=== PATIENT | female | born 1950 | race Caucasian/White ===

== ENCOUNTER 2017-12-10 18:35 | Inpatient (IN) | payer MEDICARE ==
[~2017-12-10] VITALS: Ht 157.4 cm; Wt 151.1 kg
--- NOTE | ~2017-12-10 | PR ---
[place], [place] PROGRESS NOTE NAME: CHANDRIKA GALLAGHER UNIT #: [id number] ROOM: 515 DOCTOR: TREVOR TILLMAN MD,JEFFREY BIRTHDATE: [birth year] DOS: 12/17/2017 PULMONARY PROGRESS NOTE SUBJECTIVE: The patient was noted comfortable at this time. The cough has been noted decreased for this patient after bronchoscopy yesterday, but not completely resolved. Shortness breath still noted with nmbg-op-lbbaostv activity. Denies symptoms of chest pain. The wheezing has been decreased significantly. Denies symptoms of abdominal pain. Denies symptoms of nausea, vomiting or diarrhea. The patient denies any edema or pain in the lower extremities. General weakness and fatigue persisted. Remaining systems were reviewed, they were noted all negative. OBJECTIVE: VITAL SIGNS: The temperature patient noted as normal. The respiratory rate recorded as 20, heart rate 87, blood pressure 142/88. HEENT: Head was atraumatic. Eyes: No icterus. NECK: Supple. CARDIOVASCULAR: S1, S2 is audible. LUNGS: General reduction in breath sounds, scattered wheezing, no crackles. ABDOMEN: Soft and obese. EXTREMITIES: Without any acute edema. Visible skin no lesions or rashes. MUSCULOSKELETAL: Without any acute deformities. CENTRAL NERVOUS SYSTEM: Cranial nerves 2-12 intact. LABORATORY DATA: Culture of the bronchial washing was showing heavy growth of gram-negative bacilli yesterday. The Gram stain of the bronchial washing noted many white blood cells, many gram-positive cocci in clusters. Previous sputum culture noted with Acinetobacter level of the patient, which are noted sensitive to the fluoroquinolones, ciprofloxacin and ceftazidime. IMPRESSION: 1. Persistent acute pneumonia for the patient, which are noted with Acinetobacter ____ acute and resolving, acute exacerbation of bronchial asthma. 2. Hyperglycemia secondary to corticosteroid. 3. Chronic obesity. PLAN OF TREATMENT: Reduce the Solu-Medrol dose 40 mg b.i.d. dosing. Adjustment in antibiotic according to culture results. Discontinuation of the Zithromax and the Rocephin. Start the patient on other gram-negative coverage since the current antibiotic coverage was noted ineffective to manage her bronchitis. Other supportive therapy and plan of management was also planned for this patient. half-way facility assessment. [place], [place] PROGRESS NOTE NAME: CHANDRIKA GALLAGHER UNIT #: [id number] ROOM: 515 DOCTOR: JEFFREY SNOWDEN MD BIRTHDATE: [birth year] JEFFREY MURRAY MD CM:PNTRANS [id number] JEFFREY TILLMAN MD 12/17/17 1603 interface
--- NOTE | ~2017-12-10 | PR ---
[place], [place] PROGRESS NOTE NAME: CHANDRIKA GALLAGHER UNIT #: [id number] ROOM: 515 DOCTOR: TREVOR TILLMAN MD,JEFFREY BIRTHDATE: [birth year] DOS: 12/18/2017 SUBJECTIVE: The patient was noted comfortable at this time, sitting on the bed. Denies symptoms of chest pain. Denies abdominal pain. Still noted with shortness of breath with general weakness and fatigue. OBJECTIVE: VITAL SIGNS: For the patient which has been recorded shows the temperature was noted as normal. The respiratory rate recorded as 18, heart rate 82, and blood pressure 125/90. The pulse oxygen saturation of the patient was recorded as 95% on room air. HEENT: Examination shows no acute change. NECK: Supple. CARDIOVASCULAR: S1 and S2 audible. LUNGS: Qcxt-wq-kelsimwj decreased breath sounds. No wheezing or crackles. ABDOMEN: Soft and nontender with chronic severe obesity. EXTREMITIES: No new changes. IMPRESSION: The patient who has been noted with current gram-negative bacilli, acute bronchitis with exacerbation of bronchial asthma. The final culture results, bronchial washing not released from the microbiology lab. The patient has been reordered a new assessment for the current organism identification. The patient's sensitivity results might be available tomorrow. At this time, the final culture results has not been released. PLAN OF MANAGEMENT: Continuation of antibiotics and bronchodilator. Await for culture for this patient to make final prescription antibiotic coverage for the gram-negative infection. Other supportive therapy, plan of management, care plan. Additional treatment changes will be recommended based on progression of the illness. JEFFREY MURRAY MD CM:PNTRANS [id number] JEFFREY TILLMAN MD 12/18/171954 interface
--- NOTE | ~2017-12-10 | PR ---
[place], [place] PROGRESS NOTE NAME: [id number] UNIT #: [id number] ROOM: 515 DOCTOR: TREVOR TILLMAN MD,JEFFREY BIRTHDATE: [birth year] DOS: 12/16/2017 SUBJECTIVE: The patient was noted comfortable at this time without any acute distress, resting on her bed. Still noted with a cough, the patient which remains nonproductive intermittently. The heart rate was noted in the normal sinus rhythm at this time, the patient started Xarelto 20 mg daily by the Cardiology Services. She was continued to receive the intravenous antibiotics, corticosteroids, bronchodilator treatment as previously. The patient is n.p.o. past midnight and was planned for having a bronchoscopy to be done today. The remaining systems were reviewed with the patient, they were noted all negative. OBJECTIVE: VITAL SIGNS: For the patient which has been recorded shows the temperature noted as normal. The respiratory rate recorded as 18. Heart rate of 98-91. Blood pressure 132/85. The pulse ox saturation on room air 94% saturation. HEENT: Chronic obesity. NECK: Supple. CARDIOVASCULAR: S1, S2 audible. LUNGS: The patient was noted without any crackles. Moderate decreased breath sounds with expiratory wheezing. ABDOMEN: Noted with chronic moderate severe obesity, nontender. Bowel sounds present. EXTREMITIES: The patient noted without any acute edema, clubbing, cyanosis. Chronic obesity findings. SKIN OF TREATMENT: No lesions or rashes. MUSCULOSKELETAL: Without any acute deformities. JEFFREY MURRAY MD CM:PNTRANS [phone] JEFFREY TILLMAN MD 12/16/17 1700 interface
--- NOTE | ~2017-12-10 | PR ---
[place], [place] PROGRESS NOTE NAME: [id number] UNIT #: [id number] ROOM: 515 DOCTOR: TREVOR TILLMAN MD,JEFFREY BIRTHDATE: [birth year] DOS: 12/13/2017 PULMONARY FOLLOWUP NOTE SUBJECTIVE: She has been coughing with expectoration small amount of sputum. The shortness of breath has been improving and noted better than yesterday. Wheezing was still reported for the patient, which is improving. Denies symptoms of chest pain or hemoptysis. OBJECTIVE: VITAL SIGNS: Normal temperature, respiratory rate 16, heart rate 87, blood pressure 159/90. The pulse oxygen saturation on room air 98% saturation. HEENT: No new change. NECK: Supple. CARDIOVASCULAR: S1, S2 audible. LUNGS: The patient was noted with improvement in the wheezing, niwf-rp-eigqhhlx decreased breath sounds bilaterally. ABDOMEN: Soft, obese. EXTREMITIES: No new changes. LABORATORY DATA: CBC today noted normal. BMP: Glucose 280. Remaining BMP was normal. Blood culture was noted with no bacterial growth. IMPRESSION: 1. The patient with acute exacerbation of bronchial asthma with acute severe bronchitis, responding to treatment very well. 2. Steroid-induced hyperglycemia as well. PLAN OF TREATMENT: No changes in the plan for this patient at this time. Continue current therapy as previously in progress. Usual care. All other supportive plan of therapy and management as well. Additional treatment changes to be done based on the progression of the illness. JEFFREY MURRAY MD CM:PNTRANS [id number] JEFFREY TILLMAN MD 12/13/17 1022 interface
--- NOTE | ~2017-12-10 | PR ---
[place], [place] PROGRESS NOTE NAME: CHANDRIKA GALLAGHER [facility] #: [id number] UNIT #: [id number] ROOM: 515 DOCTOR: TREVOR TILLMAN MD,JEFFREY BIRTHDATE: [birth year] DOS: 12/14/2017 HISTORY OF PRESENT ILLNESS: The patient developed atrial fibrillation with rapid ventricular response in the last 24 hours. She has been started intravenous Cardizem drip, also started on the Lovenox 1 mg/kg body weight. The patient was not reported any symptoms of chest pain. Still noted significant severe cough for this patient with minimal sputum expectoration. Denies symptoms of abdominal pain. Denies symptoms of nausea or vomiting or diarrhea. Wheezing was also still reported at time with shortness of breath occurs mostly with exertion. The patient denies symptoms of edema of the lower extremities for this patient, which is significant; however, mild edema was described. Remaining systems were reviewed with the patient, they were noted all negative. OBJECTIVE: VITAL SIGNS: The patient showed normal temperature, respiratory rate 22, heart rate 146-123, new onset of atrial fibrillation with rapid ventricular response, blood pressure 150/90-136/74. The pulse oxygen saturation for the patient on 2 liter nasal cannula 96% saturation. HEENT: Chronic obesity. NECK: Supple. CARDIOVASCULAR: S1, S2. LUNGS: Moderate decreased breath sounds with expiratory wheezing, no crackles. ABDOMEN: Soft. Chronic severe obesity. Bowel sounds present. EXTREMITIES: Without any rashes. Mild edema in bilateral lower extremities was noted. SKIN: No lesions or rashes. GENITOURINARY: Intact. MUSCULOSKELETAL: Without any acute deformities. LABORATORY DATA: The culture of the sputum preliminary showing normal dipti. The Gram stain for the patient yesterday, moderate white blood cell, few epithelial cells, moderate gram-positive cocci in clusters, few gram-negative bacilli. BMP of 311, glucose of 283, BUN and creatinine was normal. Remaining electrolytes grossly normal. Troponin first set normal. IMPRESSION: 1. The patient was encouraged noted with new onset of atrial fibrillation with rapid ventricular response with ongoing acute exacerbation of bronchial asthma, plateaued symptoms. The patient without any further improvement, severe cough. The patient remains with intermittent wheezing and shortness of breath. 2. History of obstructive sleep apnea disorder as well. 3. History of severe morbid obesity as well. PLAN OF THERAPY: Continue to maximize the cardiac management. The patient was assessed. The patient had a bronchoscopy to be done tomorrow initially, but later on deferred for this patient to another day until the medical management of atrial fibrillation done. In the meantime, continue bronchodilators and oxygen supplementation, other supportive therapy, plan of management and care plan. Usual treatment with additional treatment changes to be done based on the progression of the illness. Supportive care and other treatment to be [place], [place] PROGRESS NOTE NAME: CHANDRIKA GALLAGHER UNIT #: [id number] ROOM: [facility] DOCTOR: TREVOR TILLMAN MD,JEFFREY BIRTHDATE: [birth year] continued. Continue current dose of corticosteroids, bronchodilators, and no changes in antibiotic will be necessary. Monitor culture results of the bronchial washings. JEFFREY MURRAY MD CM:PNTRANS [id number] JEFFREY TILLMAN MD 12/14/17 1326 interface
--- NOTE | ~2017-12-10 | CON ---
[place], [place] REPORT OF CONSULTATION NAME: [facility]AND[facility]KA [facility]ALLAGHER [facility]: [id number] UNIT #: [id number] ROOM: 515 DOCTOR: JEFFREY SNOWDEN MD BIRTHDATE: [birth year] DOS: 12/11/2017 CONSULTATION REQUESTED BY: Hospitalist service. REASON FOR CONSULTATION: Ongoing acute respiratory symptoms with exacerbation of bronchial asthma and possible pneumonia. HISTORY OF PRESENT ILLNESS: The patient is a 67-year-old white female very well known to me. She was seen in my office on 12/08/2017 with progressive increased respiratory symptoms ongoing for about a week or so. The symptoms have been noted progressive worsening. The patient not responding to treatment. She contracted this pulmonary infection from her grandson, they were noted, acute illness or upper respiratory tract infection. The patient was assessed in the office. The patient noted with new, acute exacerbation of bronchial asthma with acute bronchitis. The patient was ordered doxycycline 100 mg p.o. b.i.d., tapering prednisone and intramuscular dexamethasone administered in the office. The patient was taking the medication including started using short acting bronchodilator, noted progressive worsening of the respiratory symptom without any response to current treatment. She was advised to come to the Emergency for further assessment and hospitalization. She was admitted to the hospital on 12/10/2017. The patient still noted the cough, which has been noted without any sputum expectoration, chest congestion was noted. She stated some improvement in the symptoms in the last 24 hours. She denies symptoms of hemoptysis. Denies any symptoms of chest trauma. The patient noted the pain in the lower portion of the chest, excess, related to the cough. Shortness breath was occurring with exertion. The patient noted with partial reduction in the last 24 hours since hospitalization. REVIEW OF SYSTEMS: CONSTITUTIONAL: Still noted significant fatigue and tiredness, but not reported any symptoms of fever or chills. EYES: Denies any burning, redness, or tenderness. EARS, NOSE, THROAT: Denies sore throat, hoarseness, otalgia, postnasal drainage, or epistaxis. CARDIOVASCULAR: Denies anginal pain, edema, or pain of the lower extremities. GASTROINTESTINAL: Dysphagia, nausea, vomiting, diarrhea, abdominal pain, hematemesis, melena, or hematochezia. History of chronic severe morbid obesity without any abnormal weight loss. GENITOURINARY: Denies dysuria, suprapubic pain, or hematuria. SKIN: No lesions or rashes. MUSCULOSKELETAL: Without any acute deformities or redness reported. CENTRAL NERVOUS SYSTEM: No dizziness, headache, diplopia, syncopal episodes or tingling sensation. Remaining systems were reviewed. They were noted all negative. PAST MEDICAL HISTORY: 1. History of severe morbid obesity. 2. Osteoarthritis. 3. Obstructive sleep apnea disorder treated with the CPAP of 13 cm of water. [place], [place] REPORT OF CONSULTATION NAME: CHANDRIKA GALLAGHER UNIT #: [id number] ROOM: [facility] DOCTOR: TREVOR TILLMAN MD,JEFFREY BIRTHDATE: [birth year] 4. History of hypothyroidism. SOCIAL HISTORY: The patient is currently , has 2 children, lives at home. Nonsmoker lifetime. Denies history of alcohol use or any illicit drug use. PAST SURGICAL HISTORY: 1. T and A. 2. Umbilical hernia repair. 3. Arthroscopy of the knee. FAMILY HISTORY: The patient's father at age 54 with complication related to brain tumor. Mother with complication related to the COPD. MEDICATIONS: Current administered medications at this hospital, was noted with use of levothyroxine, magnesium oxide, multivitamin, calcium carbonate, fish oil, liothyronine, Mucinex, Solu-Medrol 60 mg b.i.d., levothyroxine, Zyrtec, Zithromax, Rocephin, and other p.r.n. medications. DRUG ALLERGIES: No known drug allergies. PHYSICAL EXAMINATION: GENERAL: A 67-year-old female, currently sitting on the bed without any acute distress this morning at assessment. Height of 5 feet 2 inches, weight of 331 pounds, BMI 60. VITAL SIGNS: Normal temperature, respiratory rate of 20-24, heart rate 81-84, blood pressure 152/61-151/58. The intake is 4200 mL, output was not recorded. Pulse ox and saturation on room air 97% saturation. HEENT: Head was atraumatic. Eye nonicterus. NECK: Supple. Chronic obesity. CARDIOVASCULAR: S1, S2 is audible. LUNGS: The patient was noted with moderate decreased breath sounds with reduction in the wheezing as compared with my previous examination, 3 days ago. There were no crackles. ABDOMEN: Noted chronic severe obesity. Bowel sounds present, nontender. EXTREMITIES: The patient noted chronic obesity for this patient. The finding without any significant edema, clubbing or cyanosis. CENTRAL NERVOUS SYSTEM: Cranial nerves 2-12 intact. No focal deficit. MUSCULOSKELETAL: Without acute deformity. SKIN: No lesions or rashes of visible areas. LABORATORY DATA: Influenza A and B, nasal washing antigen noted negative. The BUN was noted 25, creatinine was normal yesterday, glucose 245. The lactic acid is 3.1. The troponin 2 sets are normal. Arterial blood gas yesterday pH of 7.39, pCO2 of 32, pO2 87 on room air at rest. The CMP this morning, glucose 269, BUN and creatinine was normal. CBC of this morning essentially remains normal. Chest x-ray, 2-view, which was done during this current hospitalization was reviewed, does not show an acute pulmonary infiltration. IMPRESSION: [place], [place] REPORT OF CONSULTATION NAME: CHANDRIKA AGLLAGHER UNIT #: [id number] ROOM: [facility] DOCTOR: JEFFREY SNOWDEN MD BIRTHDATE: [birth year] 1. The patient's ongoing severe acute bronchitis, whether viral or bacterial at this time is not very clear. 2. Acute exacerbation of bronchial asthma. 3. Hyperglycemia secondary to corticosteroid use. The patient has been noted symptomatic improvement yesterday as well. 4. History of hypothyroidism. PLAN OF TREATMENT: Continue current antibiotics combination, bronchodilators, corticosteroids and medical management of hyperglycemia. Respiratory viral panel will be obtained, rule out other viral etiology for the current infection. Supportive therapy, other plan of management and care plan. Addition treatment changes to be made based on the progression of the illness. Thanks for allowing me to participate in the care of this patient. JEFFREY MURRAY MD CM:CONSTR:REPORT OF CONSULTATION 1610 12/12/17 0053 interface
--- NOTE | ~2017-12-10 | PROC NOTE ---
[place], [place] PROCEDURE NOTE NAME: CHANDRIKA GALLAGHER UNIT #: [id number] ROOM: 515 DOCTOR: BETY VALENTINE BIRTHDATE: [birth year] DOS: 12/16/2017 MODIFIED BARIUM SWALLOW LOCATION: [facility], room 515, bed 2. ORDERING PHYSICIAN: Ayla Izquierdo DO RADIOLOGIST: Dr. Arnold. BACKGROUND INFORMATION: The patient is a 67-year-old female who was seen for modified barium swallow. This test was ordered due to difficulty swallowing. Medical history for this patient is significant for severe sepsis, pneumonitis, GERD, thyroid disease, and COPD. The patient reported that she has been experiencing a feeling of globus with solids and that it has worsened since her recent hospitalization. She reported concern that this may be occurring due to her thyroid growth. She stated that she follows with a physician due to this and it was recently checked. She reported that it has remained stable. The patient underwent a bronchoscopy this morning. She reported relief in her respiratory symptoms since this procedure was completed. The patient was not requiring oxygen at the time of today's study. Oral peripheral examination revealed presence of natural teeth which were in good condition. Oral skills were within normal limits in terms of strength, range of motion and coordination. The patient had previously received a regular diet and thin liquids. METHODS AND MATERIALS USED FOR THE EXAM: The patient was positioned in the lateral plane and examination was viewed under fluoroscopy. The patient was presented with a variety of consistencies to assess swallowing skills including applesauce mixed with barium presented in half teaspoon amounts, barium-coated cookie and sandwich taken in bite size pieces and thin liquid barium taken by cup in small and large sip size amounts. ORAL PHASE: Unremarkable. PHARYNGEAL PHASE: The patient elicited a timely swallow with all consistencies given. She exhibited no difficulty with puree or solid consistencies as laryngeal elevation and epiglottic function were adequate and no residue remained in the pharynx. When consuming thin liquid consistency, the patient was noted to take a large sip. At this time, transient penetration occurred due to reduced laryngeal elevation and epiglottic function. The patient was cued to take a smaller sip of liquid and upon further presentations no penetration occurred. No aspiration occurred with any consistency during the study. ESOPHAGEAL PHASE: This phase of the swallow was not formally assessed during this exam. IMPRESSIONS AND RECOMMENDATIONS: Based upon assessment results, this 67-year-old patient presents with swallowing skills that were within functional [place], [place] PROCEDURE NOTE NAME: CHANDRIKA GALLAGHER UNIT #: [id number] ROOM: [facility] DOCTOR: BETY VALENTINE BIRTHDATE: [birth year] limits. It is recommended that she receive a regular diet and thin liquid. Recommend use of safe swallow strategies such as small bites and sips, chewing thoroughly, moistening foods and alternating liquids and solids. Short-term therapy is recommended to ensure safe tolerance of diet through education and use of strategies. Results and recommendations of the assessment were shared with the patient and she verbalized understanding. Thank you very much for this referral. Should you have any questions regarding this patient, please contact the speech pathologist at [phone]. BETY VALENTINE CM:PROCNOTE:PROCEDURE NOTE [id number] BETY VALENTINE
--- NOTE | ~2017-12-10 | PR ---
[place], [place] PROGRESS NOTE NAME: CHANDRIKA GALLAGHER UNIT #: [id number] ROOM: 515 DOCTOR: JEFFREY SNOWDEN MD BIRTHDATE: [birth year] DOS: 12/12/2017 PULMONARY PROGRESS NOTE SUBJECTIVE: The patient was noted with worsening of the shortness of breath. This morning was also noted with wheezing and cough, which has been noted moderate and nonproductive. Denies symptoms of chest pain or hemoptysis. Denies edema or pain of the lower extremities. OBJECTIVE: VITAL SIGNS: Showed normal temperature, respiratory rate 18, heart rate 77, blood pressure 141/65. Pulse oxygen saturation on room air is 97% saturation. HEENT: Examination shows chronic obesity. NECK: Supple. CARDIOVASCULAR: S1, S2 audible. LUNGS: Noted with moderate expiratory wheezing today with decreased breath sounds. ABDOMEN: Soft, nontender. EXTREMITIES: Without any edema. LABORATORY DATA: PT/PTT noted normal today. The BMP of the patient noted as glucose elevated to 150, otherwise normal. CBC this morning was normal. Lactic acid has not been redone from yesterday morning. IMPRESSION: 1. The patient has been currently noted with ongoing acute exacerbation of bronchial asthma with acute bronchitis. 2. Hyperglycemia, secondary to corticosteroids. 3. Chronic obesity. PLAN OF TREATMENT: Continuation of bronchodilators and oxygen supplementation. Management of hyperglycemia will be continued. Continue the current dose of corticosteroid, Solu-Medrol 60 mg b.i.d. The reduction to be done based on improvement in symptoms. [place], [place] PROGRESS NOTE NAME: CHANDRIKA GALLAGHER UNIT #: [id number] ROOM: [facility] DOCTOR: JEFFREY SNOWDEN MD BIRTHDATE: [birth year] JEFFREY MURRAY MD CM:PNTRANS [phone] JEFFREY TILLMAN MD 12/13/17 0055 interface
--- NOTE | ~2017-12-10 | PROC NOTE ---
[place], [place] PROCEDURE NOTE NAME: CHANDRIKA GALLAGHER UNIT #: [id number] ROOM: [facility] DOCTOR: TREVOR TILLMAN MD,JEFFREY BIRTHDATE: [birth year] DOS: 12/16/2017 PREOPERATIVE DIAGNOSES: The patient with increased coughing, which remains persistent for the patient and nonproductive with ongoing exacerbation of bronchial asthma as well. POSTOPERATIVE DIAGNOSES: Removal of moderate size mucus plug and endobronchial tree bilaterally, successfully without any difficulty. DESCRIPTION OF PROCEDURE: Informed consent obtained for the patient. The patient brought to the OR and placed in supine position. Conscious sedation administered by the Anesthesia Department. After achieving proper sedation, airway introduced into the mouth. Bronchoscope advanced to the airway into laryngeal area. Epiglottis and vocal cords were seen. Vocal cords moving symmetrically with movements. The bronchoscope advanced to vocal cord and tracheal lumen that shows moderate amount of thick mucus which was suctioned out ____. The patient noted similar appearance of the mucus causing impaction of the endobronchial tree subsegments bilaterally mostly in the lower lungs. Bronchial washing taken for all the bronchus subsegment which was otherwise noted patent. Procedure well tolerated by the patient. Postoperative findings were discussed with the patient's family members. JEFFREY MURRAY MD CM:PROCNOTE:PROCEDURE NOTE 1226 [id number] JEFFREY TILLMAN MD
--- NOTE | ~2017-12-10 | EKG ---
[place], [place] ELECTROCARDIOGRAM REPORT NAME: CHANDRIKA GALLAGHER UNIT #: [id number] ROOM: [facility] DOCTOR: TREVOR TILLMAN MD,JEFFREY BIRTHDATE: [birth year] DOS: 12/10/2017 ELECTROCARDIOGRAM REPORT TIME: 7:26 p.m. Normal sinus rhythm noted with heart rate of 82 beats per minute without any ischemic changes or arrhythmias. JEFFREY MURRAY MD CM:EKGRPT:ELECTROCARDIOGRAM REPORT [id number] JEFFREY TILLMAN MD
--- NOTE | ~2017-12-10 | PR ---
[place], [place] PROGRESS NOTE NAME: CHANDRIKA GALLAGHER [facility] #: [id number] UNIT #: [id number] ROOM: 515 DOCTOR: TREVOR TILLMAN MD,JEFFREY BIRTHDATE: [birth year] DOS: 12/15/2017 SUBJECTIVE: The patient was noted comfortable at this time without any acute distress at this time. She has been still noted the coughing. The tachycardia for the patient, which was noted yesterday with atrial fibrillation seems to be resolved completely. The patient ____ abdominal pain. No symptoms of nausea or vomiting. The shortness of breath has been noted with gradual reduction. She has been continued subcutaneous Lovenox and also receiving the intravenous Cardizem drip. She denies symptoms of hematuria, hemoptysis, or hematochezia. Denies any worsening of the edema of the lower extremity. Mild edema of the lower extremity remains persistent. The remaining systems were reviewed. They were noted all negative. OBJECTIVE: VITAL SIGNS: For the patient shows normal temperature, respiratory rate 20, heart rate 89. Previous noted highest of 146. The blood pressure is 141/70, 137/87. Pulse oxygen saturation on 2 liter nasal cannula 97% saturation. HEENT: Examination shows head was atraumatic. Eyes nonicterus. NECK: Supple. CARDIOVASCULAR: S1, S2 is audible. LUNGS: The patient was noted with moderately decreased breath sounds in the lung with expiratory wheezing. There were no crackles. ABDOMEN: Soft, obese, and nontender. EXTREMITIES: Minimal edema of the ankle areas. VISIBLE SKIN: No lesions or rashes. MUSCULOSKELETAL: Without any acute deformities. CENTRAL NERVOUS SYSTEM: Cranial nerves 2-12 intact. No focal deficit. LABORATORY DATA: Culture of the sputum shows moderate growth of gram-negative bacilli for the patient at this time. CT of the chest that was ordered by the primary care attending was reviewed. The patient does not show any dense pulmonary abnormalities and/or pulmonary infiltration. Small linear atelectasis noted in the right lower lobe. BMP shows glucose of 340, BUN 26, creatinine was normal. CBC for the patient this morning, WBC count 12.6, hemoglobin normal, hematocrit 48. Platelet count was normal. 92% segmented neutrophils. Ultrasound of the lower extremity was noted with a Santos cyst reported in the right lower leg. There was no evidence of deep venous thrombosis. IMPRESSION: 1. The patient with ongoing acute exacerbation of bronchial asthma, acute tracheobronchitis, gram-negative organism ____ sensitivity. 2. Persistent severe nonproductive cough with mucus impaction. 3. Acute onset of atrial fibrillation with rapid ventricular response, which has been improving at the present time. 4. Obstructive sleep apnea disorder and chronic obesity. PLAN OF THERAPY: The patient was scheduled to have the bronchoscopy done tomorrow morning. In the meantime, continue the current plan of treatment. Adjust the antibiotic after the culture results availability. No changes need to be made immediately in the treatment. Supportive therapy, plan of management [place], [place] PROGRESS NOTE NAME: CHANDRIKA GALLAGHER UNIT #: [id number] ROOM: [facility] DOCTOR: TREVOR TILLMAN MD,JEFFREY BIRTHDATE: [birth year] and care plan. Additional treatment changes will be recommended based on progression of illness. JEFFREY MURRAY MD CM:PNTRANS [id number] JEFFREY TILLMAN MD 12/15/17 1307 interface
--- NOTE | ~2017-12-10 | CON ---
[place], [place] REPORT OF CONSULTATION NAME: CHANDRIKA GALLAGHER UNIT #: [id number] ROOM: 515 DOCTOR: AJIT SARABIA MD BIRTHDATE: [birth year] DOS: 12/14/2017 REASON FOR CONSULTATION: Rapid irregular heartbeat. HISTORY OF PRESENT ILLNESS: The patient is a 67-year-old woman who was seen at her bedside today, 12/14/2017, for evaluation of atrial fibrillation. She has a history of asthma and seasonal allergies. Recently, she was visiting with family members who had a lot of birds in the house. She states that after she left, she felt tightness and pain in her chest. Since then, her symptoms of chest tightness, cough and sputum production have gotten worse. She was treated as an outpatient with antibiotics, bronchodilators and steroids without improvement and therefore was hospitalized for more aggressive management. She was hospitalized on 12/10/2017 and was improving until 12/13/2017 when she was noted to have rapid irregular heartbeat. Monitor and EKG showed atrial fibrillation with rapid ventricular response. This was a new rhythm for the patient and we were asked to assist in her management. The patient is aware of her irregular heartbeat, but denies any chest pain. She has never had this before. She denies any history of myocardial infarction or angina. She denies any previous palpitations. The patient does not have a history of diabetes or stroke and does not have any peripheral vascular disease. Her CHADS2-VASc score is 2 indicating a high risk for future embolic events (2.2% per year without anticoagulation). PAST MEDICAL HISTORY: Includes 1. Obstructive lung disease. 2. Anxiety. 3. Gastroesophageal reflux disease. 4. Interstitial lung disease. 5. Obstructive sleep apnea. 6. Multiple problems with degenerative joint disease including back, hips, knees, etc., resulting in chronic pain. 7. Morbid obesity, brought on by steroids and inactivity after a back injury. 8. Status post cholecystectomy, tonsillectomy and tubal ligation. 9. History of thyroid nodule, being treated with thyroid suppression. 10. Newly documented atrial fibrillation, first noted 12/13/2017. 11. History of phlebitis in the 1980s, reportedly brought on by oral contraceptives. MEDICATIONS: Prior to admission included albuterol 2 puffs q. 4 hours p.r.n., calcium 500 mg daily, vitamin D 50,000 units weekly, fexofenadine 60 mg b.i.d., fish oil 1200 mg daily, fluoxetine 10 mg weekly on Mondays, levothyroxine 50 mcg on Mondays, Tuesdays, Wednesdays, and Fridays and 75 mcg daily on Saturdays and Sundays with Liothyronine 5 mcg daily, magnesium oxide 1500 mg daily, multivitamin once a day, CoQ10 200 mg daily. ALLERGIES: The patient lists allergies to LATEX and has FOOD allergies as well. FAMILY HISTORY: Father at age 52 from brain tumor. Her mother from [place], [place] REPORT OF CONSULTATION NAME: CHANDRIKA GALLAGHER UNIT #: [id number] ROOM: [facility] DOCTOR: AJIT SARABIA MD BIRTHDATE: [birth year] complications of obstructive lung disease. REVIEW OF SYSTEMS: The patient denies diplopia or loss of vision. She does have chronic joint pains in her neck, back, hips and knees. She denies focal weakness, but is generally weak. She does have cough and dyspnea. She denies fevers, chills, sweats or recent weight loss. She is morbidly obese from inactivity, steroids, etc. She denies nausea or vomiting. She denies hemoptysis or hematemesis. She denies peripheral edema. She denies change in bowel or bladder habits. She denies bleeding from her stools or urine. She does walk with a cane or a walker. She has no cold or heat intolerance and no polydipsia or polyuria. Remainder of the review of systems is negative except as noted above. SOCIAL HISTORY: The patient is . She has never smoked, but her was a heavy smoker and she was exposed to secondhand smoke for quite some time. She does not consume alcohol. PHYSICAL EXAMINATION: GENERAL: The patient is a pleasant, markedly overweight white female who is awake, alert and oriented. VITAL SIGNS: Pulse is 120 and irregularly irregular, blood pressure is 150/92. She is afebrile. She weighs 151.1 kg and has a body mass index of 61. HEENT: Normocephalic and atraumatic. Extraocular muscles are intact. Sclerae are clear. Pupils are equal, round and react to light. The oral mucosa is moist. Tongue is midline. NECK: Supple. She has no jugular distention. Carotids are full. I heard no bruits. She had no neck or supraclavicular masses and no thyromegaly. LUNGS: Respirations are unlabored. Her chest is clear to auscultation and percussion. She has no presacral edema or chest wall tenderness. CARDIOVASCULAR: Her heart has an irregularly irregular rhythm without murmurs, rubs or gallops. The PMI is not displaced. There is no precordial heave, lift or thrill. ABDOMEN: Obese, but otherwise benign, without masses, organomegaly, bruits, tenderness or rebound. EXTREMITIES: Showed trace edema at the ankles. Pedal pulses are palpable bilaterally. She has no obvious skin rashes. LABORATORY DATA: I reviewed her electrocardiogram, which shows atrial fibrillation with a rapid ventricular response. She has early precordial R-wave progression and nonspecific ST-T changes, which may be related to rate. Hemoglobin is 13.7, white count 8300, platelet count 182,000. Blood gas shows pH of 7.39, pCO2 of 32.5, pO2 of 87.6. Blood chemistry shows sodium of 140, potassium 4.0, BUN 21, creatinine 0.78. Troponin levels are normal x 3. TSH is suppressed at 0.154. IMPRESSIONS: 1. Admitted to the hospital with acute exacerbation of chronic lung disease. 2. Newly documented atrial fibrillation with rapid ventricular response, 12/13/2017. 3. CHADS-VASc score of 2, indicating a high risk for stroke without [place], [place] REPORT OF CONSULTATION NAME: CHANDRIKA GALLAGHER UNIT #: [id number] ROOM: [facility] DOCTOR: AJIT SARABIA MD BIRTHDATE: [birth year] anticoagulation. 4. Morbid obesity. 5. Degenerative joint disease. 6. History of thyroid nodule, on thyroid suppression. 7. Obstructive sleep apnea, on CPAP at home. PLAN: For now, we will evaluate her with an echocardiogram as we continue efforts to slow her heart rate. She will be placed on oral diltiazem and weaned off the intravenous diltiazem as she tolerates. She and I discussed the complications of atrial fibrillation including dyspnea, fatigue, palpitations and especially the increased risk of stroke. She does understand the indications for anticoagulation therapy and has requested that we start her on a direct oral anticoagulant. I have selected rivaroxaban for her and she will begin this today. We will stop her Lovenox in the interim. We will obtain an echocardiogram. Further recommendations depend upon the results of the echo, but at this point, I think rate control and anticoagulation are our first goals. I thank the hospitalist physicians for asking our advice regarding the patient's care. AJIT SARABIA MD CM:CONSTR:REPORT OF CONSULTATION 1614 12/14/17 2154 interface
[2017-12-10 18:42] VITALS: BP 189/94
[2017-12-10 19:27] LABS: BASO % 0.2 % (0.0-1.0); HEMATOCRIT 47.2 % (37.0-47.0); HEMOGLOBIN 15.3 g/dl (12.0-16.0); LYMPH # 1.4 10*3/uL (1.3-4.4); LYMPH % 11.5 % (27.0-41.0); MEAN CELL VOLUME 82.8 fl (81.0-99.0); MEAN CORPUSCULAR HGB 26.8 pg (27.0-31.0); MEAN CORPUSCULAR HGB CONC 32.4 g/dl (33.0-37.0); MEAN PLATELET VOLUME 11.3 fl (9.6-12.3); MONO # 0.4 10*3/uL (0.1-1.0); MONO % 3.2 % (3.0-9.0); NEUT # 10.1 10*3/uL (2.3-7.9); PLATELET COUNT AUTOMATED 232 10*3/uL (130-400); RED CELL DISTRI WIDTH 14.3 % (0-14.5); WHITE BLOOD COUNT 12.1 10*3/uL (4.8-10.8)
[2017-12-10 19:43] LABS: ALBUMIN 3.7 gm/dl (3.1-4.5); ALKALINE PHOSPHATASE 88 U/L (45-117); BUN 25 mg/dl (7-24); CHLORIDE 106 mmol/L (98-107); CREATININE 0.78 mg/dL (0.55-1.02); POTASSIUM 3.9 mmol/L (3.5-5.1); SGOT/AST 23 IU/L (3-35); SGPT/ALT 32 U/L (12-78); SODIUM 140 mmol/L (136-145); TOTAL PROTEIN 7.7 gm/dL (6.4-8.2)
[2017-12-10 19:47] LABS: TROPONIN I < 0.015 ng/ml (<0.045)
[2017-12-10 20:04] LABS: BILIRUBIN NEGATIVE (NEGATIVE); BLOOD TRACE-LYSED (NEGATIVE); CLARITY SL CLOUDY (CLEAR); COLOR YELLOW (YELLOW); GLUCOSE NEGATIVE (NEGATIVE); KETONE NEGATIVE (NEGATIVE); LEUKO ESTERASE NEGATIVE (NEGATIVE); NITRITE NEGATIVE (NEGATIVE); SPECIFIC GRAVITY 1.025 (1.005-1.030); UROBILINOGEN 0.2 E.U./dl (0.2-1.0)
[2017-12-10 20:11] LABS: BACTERIA TRACE; RBC 0-2 rbc/hpf (0-2); WBC 0-2 wbc/hpf (0-5)
[2017-12-10 20:59] VITALS: BP 178/92
[2017-12-10 21:15] VITALS: BP 143/77
[2017-12-10] MEDS ORDERED: VENTOLIN,PR2 MG/5 ML INH (22:37)
[2017-12-10] MEDS ORDERED: PROZAC10 MG PO (22:38)
[2017-12-10] MEDS ORDERED: VITAMIN D50000 UNIT PO (22:39)
[2017-12-10] MEDS ORDERED: SYNTHROID,LEVO75 MCG PO (22:41)
[2017-12-10] MEDS ORDERED: Synthroid,Levo50 MCG PO (22:41)
[2017-12-10] MEDS ORDERED: COQ-10100 MG PO (22:42)
[2017-12-10] MEDS ORDERED: CYTOMEL5 MCG PO (22:42)
[2017-12-10] MEDS ORDERED: OMEGA 3-6-9 11200 MG PO (22:43)
[2017-12-10] MEDS ORDERED: CALCIUM500 M1 PO (22:43)
[2017-12-10] MEDS ORDERED: CENTRUM SILVER1 EAC1 PO (22:44)
[2017-12-10] MEDS ORDERED: ALLEGRA ALLERGY60 M2 PO (22:45)
[2017-12-10] MEDS ORDERED: MAGNESIUM400 M1 PO (22:46)
[2017-12-11] VITALS: BP 153/64
[2017-12-11 00:52] LABS: ABG BASE EXCESS -4.3 mmol/L (-2.0-2.0); ABG HCO3 19.3 mmol/l (22-26); ABG O2 SATURATION 97.1 % (95-97); ARTERIAL BLOOD GAS PCO2 32.5 mmHg (35-45); ARTERIAL BLOOD GAS PH 7.39 (7.35-7.45); ARTERIAL BLOOD GAS PO2 87.6 mmHg (80-90)
[2017-12-11 04:11] LABS: BASO % 0.1 % (0.0-1.0); HEMATOCRIT 44.2 % (37.0-47.0); HEMOGLOBIN 14.2 g/dl (12.0-16.0); LYMPH # 0.8 10*3/uL (1.3-4.4); LYMPH % 9.5 % (27.0-41.0); MEAN CELL VOLUME 82.3 fl (81.0-99.0); MEAN CORPUSCULAR HGB 26.4 pg (27.0-31.0); MEAN CORPUSCULAR HGB CONC 32.1 g/dl (33.0-37.0); MONO # 0.1 10*3/uL (0.1-1.0); MONO % 1.2 % (3.0-9.0); NEUT # 7.6 10*3/uL (2.3-7.9); NEUT % 88.5 % (47.0-73.0); PLATELET COUNT AUTOMATED 181 10*3/uL (130-400); RED BLOOD COUNT 5.37 10*6/uL (4.10-5.10); WHITE BLOOD COUNT 8.6 10*3/uL (4.8-10.8)
[2017-12-11 04:39] LABS: ALBUMIN 3.3 gm/dl (3.1-4.5); BUN 19 mg/dl (7-24); CHLORIDE 105 mmol/L (98-107); CHOLESTEROL 138 mg/dL (<200); HDL CHOLESTEROL 36 mg/dl (40-60); LDL CHOLESTEROL 86 mg/dL (9-159); PHOSPHOROUS 2.6 mg/dL (2.5-4.9); POTASSIUM 3.8 mmol/L (3.5-5.1); SGOT/AST 16 IU/L (3-35); SGPT/ALT 28 U/L (12-78); SODIUM 140 mmol/L (136-145); TOTAL PROTEIN 6.9 gm/dL (6.4-8.2); TRIGLYCERIDES 79 mg/dl (<150); VLDL CHOLESTEROL 16 mg/dL (6-40)
[2017-12-11 04:45] LABS: ALKALINE PHOSPHATASE 76 U/L (45-117); CREATININE 0.72 mg/dL (0.55-1.02); FREE T4 1.06 ng/dl (0.76-1.46); THYROID STIM HORMONE (HS) 0.154 uIU/ml (0.358-4.75)
[2017-12-11 08:00] VITALS: BP 151/58
[2017-12-11 08:34] LABS: VITAMIN D, 25-HYDROXY 66.4 ng/mL (30-100)
[2017-12-11 12:00] VITALS: BP 150/62
[2017-12-11 16:00] VITALS: BP 123/61
[2017-12-11 20:19] VITALS: BP 131/57
[2017-12-12 00:15] VITALS: BP 141/65
[2017-12-12 07:12] LABS: BASO % 0.1 % (0.0-1.0); HEMATOCRIT 42.4 % (37.0-47.0); HEMOGLOBIN 14.2 g/dl (12.0-16.0); LYMPH # 0.8 10*3/uL (1.3-4.4); LYMPH % 7.6 % (27.0-41.0); MEAN CELL VOLUME 82.8 fl (81.0-99.0); MEAN CORPUSCULAR HGB 27.7 pg (27.0-31.0); MEAN CORPUSCULAR HGB CONC 33.5 g/dl (33.0-37.0); MEAN PLATELET VOLUME 11.3 fl (9.6-12.3); MONO # 0.5 10*3/uL (0.1-1.0); MONO % 5.2 % (3.0-9.0); NEUT # 8.5 10*3/uL (2.3-7.9); NEUT % 86.3 % (47.0-73.0); PLATELET COUNT AUTOMATED 189 10*3/uL (130-400); RED BLOOD COUNT 5.12 10*6/uL (4.10-5.10); RED CELL DISTRI WIDTH 14.3 % (0-14.5); WHITE BLOOD COUNT 9.9 10*3/uL (4.8-10.8)
[2017-12-12 07:23] LABS: ACT PARTIAL THROMBO TIME 18.3 SECONDS (20.8-31.5)
[2017-12-12 07:30] LABS: CHLORIDE 107 mmol/L (98-107); POTASSIUM 3.6 mmol/L (3.5-5.1); SODIUM 142 mmol/L (136-145)
[2017-12-12 07:37] LABS: BUN 18 mg/dl (7-24); CREATININE 0.84 mg/dL (0.55-1.02); PHOSPHOROUS 2.7 mg/dL (2.5-4.9)
[2017-12-12 08:00] VITALS: BP 175/82
[2017-12-12 12:00] VITALS: BP 150/71
[2017-12-12 16:00] VITALS: BP 166/84
[2017-12-12 20:00] VITALS: BP 147/78
[2017-12-13] VITALS: BP 145/75
[2017-12-13 06:34] LABS: BASO % 0.1 % (0.0-1.0); HEMATOCRIT 41.5 % (37.0-47.0); HEMOGLOBIN 13.7 g/dl (12.0-16.0); LYMPH # 0.6 10*3/uL (1.3-4.4); LYMPH % 7.6 % (27.0-41.0); MEAN CELL VOLUME 83.2 fl (81.0-99.0); MEAN CORPUSCULAR HGB 27.5 pg (27.0-31.0); MEAN PLATELET VOLUME 11.3 fl (9.6-12.3); MONO # 0.4 10*3/uL (0.1-1.0); MONO % 4.4 % (3.0-9.0); NEUT # 7.1 10*3/uL (2.3-7.9); NEUT % 85.7 % (47.0-73.0); PLATELET COUNT AUTOMATED 182 10*3/uL (130-400); RED BLOOD COUNT 4.99 10*6/uL (4.10-5.10); RED CELL DISTRI WIDTH 14.5 % (0-14.5); WHITE BLOOD COUNT 8.3 10*3/uL (4.8-10.8)
[2017-12-13 07:00] LABS: BUN 21 mg/dl (7-24); CHLORIDE 106 mmol/L (98-107); POTASSIUM 3.8 mmol/L (3.5-5.1); SODIUM 140 mmol/L (136-145)
[2017-12-13 08:00] VITALS: BP 159/90
[2017-12-13 12:00] VITALS: BP 158/88
[2017-12-13 16:00] VITALS: BP 156/86
[2017-12-13 20:00] VITALS: BP 150/90
[2017-12-14] VITALS: BP 140/80
[2017-12-14 06:12] LABS: BUN 21 mg/dl (7-24); CHLORIDE 105 mmol/L (98-107); CREATININE 0.78 mg/dL (0.55-1.02); SODIUM 140 mmol/L (136-145)
[2017-12-14 08:00] VITALS: BP 136/74
[2017-12-14 12:00] VITALS: BP 150/92
[2017-12-14 16:00] VITALS: BP 144/89
[2017-12-14 20:00] VITALS: BP 120/60
[2017-12-15] VITALS: BP 137/87
[2017-12-15 06:51] LABS: HEMATOCRIT 48.6 % (37.0-47.0); MEAN CELL VOLUME 81.8 fl (81.0-99.0); MEAN CORPUSCULAR HGB 26.9 pg (27.0-31.0); MEAN CORPUSCULAR HGB CONC 32.9 g/dl (33.0-37.0); MEAN PLATELET VOLUME 11.5 fl (9.6-12.3); PLATELET COUNT AUTOMATED 245 10*3/uL (130-400); RED BLOOD COUNT 5.94 10*6/uL (4.10-5.10); RED CELL DISTRI WIDTH 14.6 % (0-14.5); WHITE BLOOD COUNT 12.6 10*3/uL (4.8-10.8)
[2017-12-15 06:52] LABS: BUN 26 mg/dl (7-24); CHLORIDE 102 mmol/L (98-107); CREATININE 0.93 mg/dL (0.55-1.02); POTASSIUM 3.6 mmol/L (3.5-5.1); SODIUM 139 mmol/L (136-145)
[2017-12-15 07:17] LABS: PLATELET SUFFICIENCY NORMAL (NORMAL); TOTAL CELLS COUNTED 100 #CELLS
[2017-12-15 08:00] VITALS: BP 141/73
[2017-12-15] MEDS ORDERED: FOSAMAX70 M1 PO (11:20)
[2017-12-15 12:00] VITALS: BP 143/79
[2017-12-15 16:00] VITALS: BP 136/73
[2017-12-15 20:00] VITALS: BP 140/68
[2017-12-16] VITALS (8 sets, daily range): BP systolic 117–153; BP diastolic 75–92
[2017-12-16 01:02] LABS: ADENOVIRUS Negative (Negative); INFLUENZA A Negative (Negative); INFLUENZA B Negative (Negative); METAPNEUMOVIRUS Negative (Negative); PARAINFLUENZA 1 Negative (Negative); PARAINFLUENZA 2 Negative (Negative); PARAINFLUENZA 3 Negative (Negative); RHINOVIRUS Negative (Negative); RSV A Negative (Negative); RSV B Negative (Negative)
[2017-12-16 06:50] LABS: HEMATOCRIT 43.1 % (37.0-47.0); HEMOGLOBIN 14.2 g/dl (12.0-16.0); MEAN CELL VOLUME 82.1 fl (81.0-99.0); MEAN CORPUSCULAR HGB CONC 32.9 g/dl (33.0-37.0); PLATELET COUNT AUTOMATED 226 10*3/uL (130-400); RED BLOOD COUNT 5.25 10*6/uL (4.10-5.10); RED CELL DISTRI WIDTH 14.5 % (0-14.5); WHITE BLOOD COUNT 13.6 10*3/uL (4.8-10.8)
[2017-12-16 07:04] LABS: BUN 29 mg/dl (7-24); CHLORIDE 102 mmol/L (98-107); CREATININE 1.03 mg/dL (0.55-1.02); PHOSPHOROUS 3.1 mg/dL (2.5-4.9); SODIUM 140 mmol/L (136-145)
[2017-12-16 07:26] LABS: PLATELET SUFFICIENCY NORMAL (NORMAL); TOTAL CELLS COUNTED 100 #CELLS
[2017-12-17] VITALS: BP 142/88
[2017-12-17 08:00] VITALS: BP 136/90
[2017-12-17] MEDS ORDERED: CARDIZEM CD240 M1 PO (11:56)
[2017-12-17] MEDS ORDERED: MAGNESIUM OXID400 MG PO (11:56)
[2017-12-17] MEDS ORDERED: PREDNISONE10 MG PO (11:56)
[2017-12-17] MEDS ORDERED: LASIX20 MG PO (11:56)
[2017-12-17] MEDS ORDERED: LORAZEPAM1 MG PO (11:56)
[2017-12-17] MEDS ORDERED: XARE20MG PO (11:56)
[2017-12-17] MEDS ORDERED: POTASSIUM CHLO10 ME5 PO (11:58)
[2017-12-17] MEDS ORDERED: LEVAQUIN750 M1 PO (11:59)
[2017-12-17 12:00] VITALS: BP 141/80
[2017-12-17] MEDS ORDERED: LANOXIN0.125 MG PO (13:37)
[2017-12-17 16:00] VITALS: BP 121/76; BP 138/79
[2017-12-17 16:05] LABS: ACID FAST SPEC PROCESSING Concentration (.)
[2017-12-17 20:00] VITALS: BP 121/67
[2017-12-18] VITALS: BP 148/84
[2017-12-18 08:00] VITALS: BP 125/90
[2017-12-18 12:00] VITALS: BP 149/74
== END 2017-12-18 16:45 | disposition other institution (70) | DRG 871 ==
LOC: ED 18:35 → 5E 20:39 → EDHOLD 20:39 → 5E 20:52
PROVIDERS: Family Medicine; Internal Medicine; Internal Medicine Critical Care Medicine; Internal Medicine Nephrology; Physician Assistant
PROC: BD11YZZ Fluoroscopy of Esophagus using Other Contrast (ICD-10-PCS; principal; 2017-12-16)
PROC: 0BC18ZZ Extirpation of Matter from Trachea, Via Natural or Artificial Opening Endoscopic (ICD-10-PCS; principal; 2017-12-16)
PROC: 0BC68ZZ Extirpation of Matter from Right Lower Lobe Bronchus, Via Natural or Artificial Opening Endoscopic (ICD-10-PCS; 2017-12-16)
PROC: 0BC48ZZ Extirpation of Matter from Right Upper Lobe Bronchus, Via Natural or Artificial Opening Endoscopic (ICD-10-PCS; 2017-12-16)
PROC: 0BC78ZZ Extirpation of Matter from Left Main Bronchus, Via Natural or Artificial Opening Endoscopic (ICD-10-PCS; 2017-12-16)
PROC: 0BC58ZZ Extirpation of Matter from Right Middle Lobe Bronchus, Via Natural or Artificial Opening Endoscopic (ICD-10-PCS; 2017-12-16)
PROC: 0BCB8ZZ Extirpation of Matter from Left Lower Lobe Bronchus, Via Natural or Artificial Opening Endoscopic (ICD-10-PCS; 2017-12-16)
PROC: 0BC88ZZ Extirpation of Matter from Left Upper Lobe Bronchus, Via Natural or Artificial Opening Endoscopic (ICD-10-PCS; 2017-12-16)
PROC: 0BC98ZZ Extirpation of Matter from Lingula Bronchus, Via Natural or Artificial Opening Endoscopic (ICD-10-PCS; 2017-12-16)
PROC: 0BC38ZZ Extirpation of Matter from Right Main Bronchus, Via Natural or Artificial Opening Endoscopic (ICD-10-PCS; 2017-12-16)
PROC: B5181ZA Fluoroscopy of Superior Vena Cava using Low Osmolar Contrast, Guidance (ICD-10-PCS; 2017-12-18)
PROC: 02HV33Z Insertion of Infusion Device into Superior Vena Cava, Percutaneous Approach (ICD-10-PCS; 2017-12-18)
PROC: B548ZZA Ultrasonography of Superior Vena Cava, Guidance (ICD-10-PCS; 2017-12-18)
DX: A41.9 Sepsis, unspecified organism (principal); J18.9 Pneumonia, unspecified organism; N17.9 Acute kidney failure, unspecified; T17.590A Other foreign object in bronchus causing asphyxiation, initial encounter; D68.59 Other primary thrombophilia; I48.0 Paroxysmal atrial fibrillation; E66.01 Morbid (severe) obesity due to excess calories; E83.51 Hypocalcemia; I48.1 Persistent atrial fibrillation; J45.901 Unspecified asthma with (acute) exacerbation; Z68.44 Body mass index [BMI] 60.0-69.9, adult; I16.0 Hypertensive urgency; R65.20 Severe sepsis without septic shock; J20.9 Acute bronchitis, unspecified; F41.8 Other specified anxiety disorders; K21.9 Gastro-esophageal reflux disease without esophagitis; G47.33 Obstructive sleep apnea (adult) (pediatric); R73.9 Hyperglycemia, unspecified; E03.9 Hypothyroidism, unspecified; M16.0 Bilateral primary osteoarthritis of hip; M17.0 Bilateral primary osteoarthritis of knee; R31.9 Hematuria, unspecified; T38.0X5A Adverse effect of glucocorticoids and synthetic analogues, initial encounter; X58.XXXA Exposure to other specified factors, initial encounter; Y92.89 Other specified places as the place of occurrence of the external cause; Y93.89 Activity, other specified; Y99.8 Other external cause status; Z90.49 Acquired absence of other specified parts of digestive tract; Z98.51 Tubal ligation status; Z80.8 Family history of malignant neoplasm of other organs or systems; Z83.6 Family history of other diseases of the respiratory system; Z79.899 Other long term (current) drug therapy; Z98.42 Cataract extraction status, left eye; Z98.41 Cataract extraction status, right eye; Z83.3 Family history of diabetes mellitus; Z82.49 Family history of ischemic heart disease and other diseases of the circulatory system

== ENCOUNTER → 2022-09-20 | Outpatient (CLI) | payer MEDICARE, OTHER ==
[~2022-09-20] MED LIST: ALLEGRA ALLERGY60 M2 PO; CALCIUM500 M1 PO; CARDIZEM CD240 M1 PO; CENTRUM SILVER1 EAC1 PO; COQ-10100 MG PO; CYTOMEL5 MCG PO; FOSAMAX70 M1 PO; LANOXIN0.125 MG PO; LASIX20 MG PO; LEVAQUIN750 M1 PO; LORAZEPAM1 MG PO; MAGNESIUM OXID400 MG PO; MAGNESIUM400 M1 PO; OMEGA 3-6-9 11200 MG PO; POTASSIUM CHLO10 ME5 PO; PREDNISONE10 MG PO; PROZAC10 MG PO; SYNTHROID,LEVO75 MCG PO; Synthroid,Levo50 MCG PO; VENTOLIN,PR2 MG/5 ML INH; VITAMIN D50000 UNIT PO; XARE20MG PO
== END | disposition home or self-care (01) ==
LOC: RESCLI 14:11
PROVIDERS: ATTEND Internal Medicine
DX: E11.9 Type 2 diabetes mellitus without complications (principal); I10 Essential (primary) hypertension; G47.00 Insomnia, unspecified; I48.91 Unspecified atrial fibrillation; E55.9 Vitamin D deficiency, unspecified; E03.9 Hypothyroidism, unspecified; J45.909 Unspecified asthma, uncomplicated; F32.9 Major depressive disorder, single episode, unspecified; L08.9 Local infection of the skin and subcutaneous tissue, unspecified; Z91.048 Other nonmedicinal substance allergy status; Z88.8 Allergy status to other drugs, medicaments and biological substances; Z90.49 Acquired absence of other specified parts of digestive tract; Z98.890 Other specified postprocedural states; Z82.49 Family history of ischemic heart disease and other diseases of the circulatory system; Z79.899 Other long term (current) drug therapy

== ENCOUNTER → 2023-05-06 | Outpatient (CLI) | payer MEDICARE, OTHER ==
[~2023-05-06] MED LIST changes: +ALDACTONE25 M1 PO; +B COMPLEX1 EACH PO; +BUMETANIDE2 MG PO; +CALCIUM PO; +CARDIZEM CD360 MG PO; +CRANBERRY400 M1 PO; +CRESTOR5 M1 PO; +CYMBALTA60 MG PO; +DIGOXIN125 MCG PO; +ELIQUIS5 M1 PO; +FLONASE ALLERG9.9 ML NAS; +IMDUR SA30 MG PO; +INSULIN GL100 UNIT/5 SC; +INSULIN LI100 UNIT/2 SQ; +JARDIANCE10 MG PO; +MELATONIN3 MG PO; +OMEGA 3 FISH O1 EACH PO; +Synthroid,Levo88 MCG PO; +TUMERIC; +[UNRECOGNIZED DRUG - CODE] PO; +[UNRECOGNIZED DRUG - OTHER] PO
[2023-05-06 15:04] LABS: BILIRUBIN Negative (Negative); BLOOD Negative (Negative); CLARITY Clear (Clear); COLOR Yellow (Yellow); GLUCOSE Trace (Negative); KETONE Negative (Negative); LEUKO ESTERASE Negative (Negative); NITRITE Negative (Negative); UROBILINOGEN 0.2 E.U./dl (0.0-1.0)
[2023-05-06 15:23] LABS: BACTERIA TRACE; EPITHELIAL CELLS 0-2; RBC 0-2 rbc/hpf (0-2); WBC 0-2 wbc/hpf (0-5)
== END | disposition home or self-care (01) ==
LOC: RESCLI 00:58
PROVIDERS: Student in an Organized Health Care Education/Training Program; ATTEND Internal Medicine
DX: N39.0 Urinary tract infection, site not specified (principal); E11.9 Type 2 diabetes mellitus without complications; I10 Essential (primary) hypertension; E78.2 Mixed hyperlipidemia; G47.00 Insomnia, unspecified; E55.9 Vitamin D deficiency, unspecified; E03.9 Hypothyroidism, unspecified; F32.9 Major depressive disorder, single episode, unspecified; Z00.00 Encounter for general adult medical examination without abnormal findings; I48.91 Unspecified atrial fibrillation; J45.909 Unspecified asthma, uncomplicated; L08.9 Local infection of the skin and subcutaneous tissue, unspecified; Z98.890 Other specified postprocedural states; Z91.048 Other nonmedicinal substance allergy status; Z88.8 Allergy status to other drugs, medicaments and biological substances; Z82.49 Family history of ischemic heart disease and other diseases of the circulatory system; Z79.899 Other long term (current) drug therapy

== ENCOUNTER → 2023-11-10 | Outpatient (CLI) | payer MEDICARE, OTHER | END | disposition home or self-care (01) | LOC: RESCLI 02:50 | PROVIDERS: ATTEND Student in an Organized Health Care Education/Training Program | DX: Z53.9 Procedure and treatment not carried out, unspecified reason (principal) ==

== ENCOUNTER 2024-01-15 14:32 | Emergency (ER) | payer MEDICARE, OTHER ==
[~2024-01-15] VITALS: Ht 157.4 cm; Wt 145.1 kg
[2024-01-15] MEDS ORDERED: LORazepam 1 MG TAB PO ONE (14:45)
[2024-01-15] MEDS ORDERED: SODIUM CHLORIDE 0.9% 1,000 ML IV ONE (14:45)
[2024-01-15] MEDS ORDERED: Ondansetron Hydrochloride 4 MG/2 ML VIAL IV ONE (14:45)
[2024-01-15 14:59] LABS: BASO % 0.4 % (0.0-1.0); EOS # 0.1 10*3/uL (0.0-0.4); EOS % 0.4 % (1.0-4.0); HEMATOCRIT 42.7 % (37.0-47.0); LYMPH # 1.6 10*3/uL (1.3-4.4); LYMPH % 14.4 % (27.0-41.0); MEAN CELL VOLUME 85.7 fl (81.0-99.0); MEAN CORPUSCULAR HGB 27.3 pg (27.0-31.0); MEAN CORPUSCULAR HGB CONC 31.9 g/dl (33.0-37.0); MONO % 8.6 % (3.0-9.0); NEUT # 8.6 10*3/uL (2.3-7.9); NEUT % 75.6 % (47.0-73.0); PLATELET COUNT AUTOMATED 262 10*3/uL (130-400); RED BLOOD COUNT 4.98 10*6/uL (4.10-5.10); RED CELL DISTRI WIDTH 16.3 % (0-14.5); WHITE BLOOD COUNT 11.4 10*3/uL (4.8-10.8)
[2024-01-15 15:24] LABS: ALKALINE PHOSPHATASE 72 U/L (46-116); BUN 33 mg/dl (9-23); CHLORIDE 109 mmol/L (98-107); POTASSIUM 3.1 mmol/L (3.4-5.1); SGPT/ALT 19 U/L (5-49); TOTAL PROTEIN 6.8 gm/dL (6.0-8.0)
[2024-01-15] MEDS ORDERED: POTASSIUM CHLORIDE 20 MEQ TAB PO ONE ×2 (15:50→17:05)
[2024-01-15] MEDS ORDERED: DEXTROSE 50% 25 GM/50 ML SYR IV ONE ×2 (16:05→16:13)
== END 2024-01-15 17:19 | disposition home or self-care (01) ==
LOC: ED 14:32
PROVIDERS: Emergency Medicine
DX: E16.2 Hypoglycemia, unspecified (principal); E87.6 Hypokalemia; R11.0 Nausea; R20.0 Anesthesia of skin; F41.9 Anxiety disorder, unspecified; F32.A Depression, unspecified; J45.909 Unspecified asthma, uncomplicated; K21.9 Gastro-esophageal reflux disease without esophagitis; I48.91 Unspecified atrial fibrillation; Z88.8 Allergy status to other drugs, medicaments and biological substances; Z98.890 Other specified postprocedural states; Z90.49 Acquired absence of other specified parts of digestive tract; Z98.51 Tubal ligation status; Z90.89 Acquired absence of other organs; Z86.718 Personal history of other venous thrombosis and embolism

== ENCOUNTER 2025-01-26 08:52 | Emergency (ER) | payer MEDICARE, OTHER ==
[~2025-01-26] VITALS: Ht 165.1 cm; Wt 122.5 kg
[~2025-01-26 08:52] MED LIST changes: +AMIODARONE HYD200 MG PO; +CEPHALEXIN500 M1 PO; +HUMALOG100 UNIT/2 SQ; +INSULIN GL300 UNIT/1 SQ; +METRONIDAZOLE500 M1 PO; -TUMERIC; +TUMERIC PO
[2025-01-26 08:58] VITALS: BP 125/49
[2025-01-26] MEDS ORDERED: METHOCARBAMOL1000 MG PO (11:19)
[2025-01-26] MEDS ORDERED: METHOCARBAMOL 500 MG TAB PO ONE (11:20)
== END 2025-01-26 11:40 | disposition home or self-care (01) ==
LOC: ED 08:52
DX: S39.012A Strain of muscle, fascia and tendon of lower back, initial encounter (principal); S00.83XA Contusion of other part of head, initial encounter; S80.01XA Contusion of right knee, initial encounter; K21.9 Gastro-esophageal reflux disease without esophagitis; J45.909 Unspecified asthma, uncomplicated; E11.9 Type 2 diabetes mellitus without complications; I11.0 Hypertensive heart disease with heart failure; I50.9 Heart failure, unspecified; Z79.1 Long term (current) use of non-steroidal anti-inflammatories (NSAID); Z79.4 Long term (current) use of insulin; Z79.899 Other long term (current) drug therapy; Z88.1 Allergy status to other antibiotic agents; Z90.49 Acquired absence of other specified parts of digestive tract; Z90.89 Acquired absence of other organs; Z98.51 Tubal ligation status; Z98.890 Other specified postprocedural states; W18.39XA Other fall on same level, initial encounter; Y93.89 Activity, other specified; Y92.89 Other specified places as the place of occurrence of the external cause; Y99.8 Other external cause status